=== PATIENT | male | born 1950 | race Caucasian/White ===

== ENCOUNTER → 2018-11-15 | Day surgery (SDC) | payer MEDICARE ==
[2018-11-10 11:57] LABS: BASOPHILS # (AUTO) 0.1 (0.0-0.1); EOSINOPHILS # (AUTO) 0.3 (0.0-0.4); EOSINOPHILS % 5.1 % (0.0-6.0); HEMATOCRIT 37.5 % (38.2-49.6); HEMOGLOBIN 12.5 g/dL (14.0-18.0); LYMPHOCYTES # (AUTO) 1.2 (1.0-3.2); LYMPHOCYTES % 22.6 % (18.0-39.1); MEAN CORPUSCULAR HEMOGLOBIN 28.5 pg (28-32); MEAN CORPUSCULAR HGB CONC 33.3 g/dL (31-35); MEAN CORPUSCULAR VOLUME 85.6 fL (81-99); MONOCYTES # (AUTO) 0.5 (0.2-0.8); MONOCYTES % 9.1 % (4.4-11.3); NEUTROPHILS # (AUTO) 3.3 (2.1-6.9); NEUTROPHILS % 61.8 % (38.7-80.0); PLATELET COUNT 172 x10e3/uL (140-360); RED BLOOD COUNT 4.38 x10e6/uL (4.3-5.7); RED CELL DISTRIBUTION WIDTH 13.6 % (11.7-14.4)
[~2018-11-15] MED LIST: ABILIFY10 MG PO; ACTOS30 MG PO; ARICEPT10 MG PO; ASPIR 8181 MG PO; ASPIRIN 81; ASPIRIN325 MG PO; CARVEDILOL25 MG PO; CLOPIDOGREL75 MG PO; CRESTOR10 MG PO; CYMBALTA60 MG PO; DIOVAN160 MG PO; EPHEDRINE SULFATE INJ 50 MG/10 ML SYR ONE; EXELON1 EAC1 TOP; FENTANYL CITRATE/PF 100MCG/2 ML INJ ONE; FLONASE; GABAPENTIN300 MG PO; GLIMEPIRIDE2 MG PO; GLUCAGON FOR INJ 1 MG VIAL ONE; HUMALOG MI100 UNIT/2 INJ; HYDROCODON-ACE1 EAC9 PO; HYOSCYAMINE 0.125 MG TAB ONE; JANUMET 50-1,01 EACH PO; JANUMET XR 50-1 EAC1; JANUMET XR 50-1 EAC1 PO; LANTUS100 UNITS/ SC; LEVOCETIRIZINE D5 MG PO; LORTAB 10-5001 EACH PO; LOSARTAN POTAS100 MG PO; MEMANTINE PO; MIDAZOLAM HCL 2 MG/2 ML VIAL ONE; NAMENDA PO; NOVOLOG SC; NOVOLOG100 UNITS1 SC; PANTOPRAZOLE SO40 MG PO; PLAVIX75 MG PO; PROPOFOL IV EMULSION 10 MG/ML 50 ML VIAL ONE; RIVASTIGMINE6 MG PO; SOMA350 MG PO; TAMSULOSIN HCL0.4 MG PO; TRESIBA SC; TRILIPIX135 MG PO
--- OUTSIDE RECORDS SUMMARY | 2018-11-15 06:35 | XMS REPORT | Continuity of Care Document ---
Author Author [facility] Organization [facility] Address Unknown Phone Unavailable Care Team Providers Care Gardening Manager Name Role Phone [facility] Unavailable Unavailable Problems Problem Status Onset Date Classification Date Reported Comments Source Epididymitis 01/22/2018 07/28/2018 [facility] Alzheimer's disease with early onset 01/08/2018 07/21/2018 [facility] FOLLOW UP Active 10/09/2014 [facility] 6 MONTH FOLLOW UP Active 10/10/2013 [facility] NEW PATIENT/HOSPITAL FOLLOW UP EXISTINE Active 2013 [facility] F/U Active 10/18/2012 [facility] Coronary artery disease Active Problem 07/28/2018 [facility], [facility] Diabetes mellitus type II Resolved Problem 07/28/2018 [facility], [facility] [place] Hyperlipidemia Active Problem 07/28/2018 [facility], [facility] Hypertension Active Problem 07/28/2018 [facility] [place] Postpolio syndrome Resolved Problem 07/28/2018 [facility], [facility] [place] Spinal stenosis Resolved Problem 07/28/2018 [facility] Radiculopathy, lumbar region 07/21/2018 [facility] Pain in right hip 07/21/2018 [facility] Other intervertebral disc displacement, lumbosacral region 07/21/2018 [facility] Spinal stenosis, lumbar region without neurogenic claudication 07/21/2018 [facility] Spinal stenosis, lumbosacral region 07/21/2018 [facility] Other congenital malformations of spine, not associated with scoliosis 07/21/2018 [facility] Unilateral primary osteoarthritis, right hip 07/21/2018 [facility] ROUTINE MEDICAL EXAM Active [facility] MEDICAL SERVICES NOT AVAILABLE IN HOME Active [facility] Medications Medication Details Route Status Patient Instructions Ordering Provider Order Date Source Rosuvastatin calcium 20 MG Oral Tablet [Crestor] 20 mg=1 tab, PO, Bedtime, # 90 tab, 3 Refill(s), Pharmacy: [facility] [id number] Active 04/10/2014 [facility] Allergies, Adverse Reactions, Alerts No Known Medication Allergies Immunizations Immunization Date Given Site Status Last Updated Comments Source influenza virus vaccine, inactivated 01/27/2013 Left deltoid completed Diomedes [facility], RACHID Castano pneumococcal 23-valent vaccine 01/24/2013 Right deltoid completed Deo [facility], RACHID [facility] Results No Data Provided for This Section Pathology Reports No Data Provided for This Section Diagnostic Reports Report Value Date Source Scrotal/Testicle US EXAM: Scrotal/Testicle US HISTORY: - N50.9 Disorder of male genital organs, unspecified << No Exact Match >> COMPARISON: None Technique: Ledesma scale, color and limited spectral doppler imaging of the testicles. FINDINGS: There is scrotal thickening. The testes are normal in position within the scrotal sac. The right testicle measures 3.8 x 2.0 x 2.2 cm with normal homogenous echogenicity. No mass. The right epididymal head measures 1.1 cm. There is a 1.6 cm epididymal head cyst incidentally noted. The left testicle measures 4.0 x 1.6 x 2.6 cm with normal homogenous echogenicity. No mass. The left epididymal head measures 1.1 cm. There is a 3 mm left epididymal head cyst. No hydrocele is seen. No varicocele is seen. Normal, symmetric dopplerable flow is seen in both testicles. No epididymal hyperemia to suggest infection. IMPRESSION: Normal testicles. Scrotal skin thickening. 01/08/2018 [facility]ACH[facility] Castano Hip wo contrast MRI EXAM: MR RIGHT HIP WITHOUT CONTRAST DATE: 01/01/2018 at 0723 hours. INDICATION: M25.551 Pain in right hip. ADDITIONAL INFORMATION: 67-year-old man with mid to lower back pain which radiates into the right hip times several years. COMPARISON: None available. TECHNIQUE: Multiplanar, multisequence MR noncontrast imaging of the right hip. FINDINGS: LABRUM: While the examination is limited without intra-articular contrast, no acute labral abnormality is identified. There is thickening and heterogeneous signal of the posterior inferior labrum (image 13, series 8). LIGAMENTS: The ligamentum teres and the capsular ligaments are intact. MUSCLES/TENDONS: No signal abnormality in the muscles or tendons. CARTILAGE: No focal defects. BONE: No fractures. Small marginal osteophytes are seen at the head/neck junction of the femur. SOFT TISSUE: Normal. No abnormality of the visible neurovascular structures. IMPRESSION: No acute abnormality. Mild RIGHT hip osteoarthrosis. Degenerative-type abnormality of the posteroinferior labrum. Please see the concurrent lumbar spine MRI for additional details. 01/01/2018 [facility] Spine lumbar wo contrast MRI Spine lumbar wo contrast MRI , 01/01/2018 7:09 AM CDT. CLINICAL INDICATION: 67 years Male M54.16 Radiculopathy, lumbar region - M54.16 Radiculopathy, lumbar region . Comparison: 11/30/2012 TECHNIQUE: Sagittal T1, sagittal T2 with fat saturation, axial T1 and axial T2 images were obtained. FINDINGS: There is congenital narrowing of the canal due to short pedicles, which exaggerates the effects of degenerative change. There is been exchanged to type II (fatty) endplate changes at L4-L5 and L5-S1, previously type I (fibrovascular/edematous). There is straightening of lumbar lordosis with L4-L5 greater than L2-L3 retrolisthesis of up to 4 mm. The vertebrae are otherwise normal in shape, signal intensity and alignment. The paravertebral musculature demonstrates mild fatty atrophy in keeping with deconditioning. The conus medullaris terminates normally at the L1 level. There is no intradural mass lesion. T12-L1: There is preservation of the disc signal intensity, height, with no bulging, herniation, spinal stenosis, or neural foraminal stenosis. L1-L2: Disc is mildly desiccated but normal in height, with no bulging, herniation, spinal stenosis, or neural foraminal stenosis. L2-L3: Disc is desiccated with mild disc height loss. 5 mm disc bulge exaggerated by the retrolisthesis with mild facet hypertrophy. This results in moderate to severe canal lateral recess narrowing with crowding of the nerve roots and near CSF block. Mild to moderate bilateral neural foraminal narrowing with slight deformity of the L2 nerve root. No focal disc herniation. L3-L4: Disc is desiccated with maintained disc height. Disc bulge/disc osteophyte complexes measure up to 4 mm with moderate facet hypertrophy and mild ligamentum flavum thickening. This results in mild canal, neural foraminal, and lateral recess narrowing bilaterally. No focal disc herniation. L4-L5: Disc is desiccated with moderate disc height loss. Diffuse disc osteophyte complexes measure up to 6 mm in the midline and 7 mm in the right greater than left extraforaminal region exaggerated by the retrolisthesis with mild facet hypertrophy and ligamentum flavum thickening. This results in severe left and moderate right neural foraminal narrowing with compression of the left and deformity of the right L4 nerve roots. Moderate to severe canal and lateral recess narrowing with crowding of the nerve roots and near CSF block. L5-S1: Disc is desiccated with maintained disc height. Subligamentous disc extrusion again noted measuring approximately 8 mm anterior posteriorly and extending 8 mm below the level the disc with moderate annular fissuring, superimposed disc bulge asymmetric to the left measuring up to 6 mm, moderate facet hypertrophy and ligamentum flavum thickening. This results in severe left greater than right canal lateral recess narrowing compression of the nerve roots and probable complete CSF block. Severe bilateral neural foraminal compression of the L5 nerve roots. IMPRESSION: 1. Conversion of type I to type II changes at L4-L5 and L5-S1. 2. Otherwise, no significant interval change in multilevel degenerative with L5- S1 disc extrusion with annular fissuring, and severe canal/lateral recess stenosis at L5-S1 greater than L2-L3 and L4-L5, which is combined congenital and acquired. Multilevel foraminal narrowing including compression of left L4 and bilateral L5 nerve roots. Lesser stenoses as above. 3. Multilevel retrolisthesis. If there is clinical concern for instability, consider flexion-extension views. 01/01/2018 [facility] Cast[facility] Brain wo contrast MRI Patient Name: ALICIA ROSE : 1950; Age: 66 years y/o Male MR: [id number] Study: Brain wo contrast MRI 09/03/2016 3:08 PM CDT Ordering Physician: Nathalie Mccall MD Clinical Indication: I63.30 Cerebral infarction due to thrombosis of unspecified cerebral artery; Comparison: 08/22/2013 brain magnetic resonance imaging TECHNIQUE: Multiplanar noncontrast MRI of the brain is performed. FINDINGS: BRAIN PARENCHYMA: There is no hemorrhage, mass lesion, extra axial collection, cerebral edema, or mass effect. Diffusion sequences are normal. There is mild generalized cortical and deep white matter volume loss most evident in the temporal lobes. There are mild periventricular white matter signal abnormalities without mass effect. There are no cortical signal abnormalities. The cerebellar tonsils are above foramen magnum. The pituitary gland is age-appropriate. CEREBELLOPONTINE REGIONS AND SKULL BASE: The cerebellopontine angles appear unremarkable. No skull base abnormality is seen. VENTRICLES/SULCI/CISTERNS: The ventricles are normal in size and configuration. The basal cisterns are patent. VISUALIZED VESSELS: Major intracranial flow voids are preserved. ORBITS, VISUALIZED PARANASAL SINUSES AND MASTOIDS: Paranasal sinuses are clear. The mastoid air cells are clear. No orbital pathology is seen. IMPRESSION: 1. No evidence of acute or recent ischemia. Chronic small vessel ischemic changes are stable compared to previous study 2. Generalized volume loss most evident in the temporal lobes 09/03/2016 RACH[facility] Castano Consultation Notes No Data Provided for This Section Discharge Summaries No Data Provided for This Section History and Physicals No Data Provided for This Section Vital Signs Vital Sign Value Date Comments Source BMI Calculated 29.57 10/09/2014 [facility] Weight 98.892 10/09/2014 [facility] Height 182.88 cm 10/09/2014 [facility] Heart Rate 86 10/09/2014 [facility] Temperature Oral (F) 97.8 F 10/09/2014 [facility] Systolic (mm Hg) 172 10/09/2014 [facility] Diastolic (mm Hg) 91 10/09/2014 [facility] Respitory Rate 16 04/10/2014 [facility] Temperature Oral (F) 97.7 F 04/10/2014 [facility] Heart Rate 82 04/10/2014 [facility] Systolic (mm Hg) 178 04/10/2014 [facility] Diastolic (mm Hg) 98 04/10/2014 [facility] Height 182.88 cm 04/10/2014 [facility] BMI Calculated 27.74 04/10/2014 [facility] Weight 92.784 04/10/2014 [facility] Encounters Location Location Details Encounter Type Encounter Number Reason For Visit Attending Provider ADM Date DC Date Status Source [facility] Outpatient [id number] Bib De Los Santos 04/10/2014 04/11/2014 [facility] Outpatient [id number] Bib De Los Santos 10/09/2014 10/10/2014 [facility] Outpatient [id number] Bib De Los Santos 04/16/2015 04/17/2015 [facility] [id number] Nathalie Palvadi 09/03/2016 09/04/2016 [facility] [place] [id number] Nathalie Palvadi 01/01/2018 01/02/2018 [facility] [place] [id number] Giovanny Guan 01/08/2018 01/09/2018 [facility] Procedures Procedure Code Date Perfomer Comments Source Coronary artery bypass grafts x 2 [id number] 01/27/2013 [facility] Coronary artery bypass grafts x 2 [id number] 01/27/2013 [facility] Laminectomy [id number] 01/13/2013 [facility] Laminectomy [id number] 01/13/2013 [facility] Percutaneous transluminal coronary angioplasty<sup>1</sup> [id number] Multiple times [facility] Percutaneous transluminal coronary angioplasty<sup>1</sup> [id number] Multiple times [facility] Assessment and Plan No Data Provided for This Section Plan of Care No Data Provided for This Section Social History Social History Date Source Social History TypeResponse Substance Abuse 1 Alcohol 2 Smoking Status Former smoker; Stopped at age: 57; Exposure to Tobacco Smoke Unable to obtain; Cigarette Smoking Last 365 Days No; Reg Smoking Cessation Counseling No [id number] 05/17/2013 [facility] Social History TypeResponse Substance Abuse 1 Alcohol 2 Smoking Status Former smoker; Exposure to Tobacco Smoke Unable to obtain; Cigarette Smoking Last 365 Days No; Reg Smoking Cessation Counseling No; Stopped at age: 57; entered on: 10/09/14 [id number] 05/17/2013 [facility] Family History No Data Provided for This Section Advance Directives No Data Provided for This Section Functional Status No Data Provided for This Section
--- OUTSIDE RECORDS SUMMARY | 2018-11-15 06:35 | XMS REPORT | Summary of Care ---
Author Author [facility] [place] Organization [facility] [place] Address Unknown Phone Unavailable Encounter FRAN Durate(FIN) [id number] Date(s): 01/01/18 - 01/01/18 [facility] Outpatient Imaging [facility] [address] [place], [place] [address] [phone] Encounter Diagnosis Alzheimer's disease with early onset (Final) - 01/07/18 Radiculopathy, lumbar region (Final) - Pain in right hip (Final) - Other intervertebral disc displacement, lumbosacral region (Final) - Spinal stenosis, lumbar region without neurogenic claudication (Final) - Spinal stenosis, lumbosacral region (Final) - Other congenital malformations of spine, not associated with scoliosis (Final) - Unilateral primary osteoarthritis, right hip (Final) - Discharge Disposition: Home or Self Care Attending Physician: Nathalie Mccall MD Referring Physician: Nathalie Mccall MD Vital Signs No data available for this section Problem List Condition Effective Dates Status Health Status Informant Coronary artery Active disease(Confirmed) Diabetes mellitus Resolved type II(Confirmed) Hyperlipidemia(Confi Active rmed) Hypertension(Confirm Active ed) Postpolio Resolved syndrome(Confirmed) Spinal Resolved stenosis(Confirmed) Allergies, Adverse Reactions, Alerts Substance Reaction Severity Status NKDA Active Medications No data available for this section Results No data available for this section Immunizations Given and Recorded Vaccine Date Status Refusal Reason influenza virus vaccine, inactivated 01/27/13 Given pneumococcal 23-valent vaccine 01/24/13 Given Procedures Procedure Date Related Diagnosis Body Site Status Coronary artery bypass grafts x 2 01/27/13 Completed Laminectomy 01/13/13 Completed Percutaneous transluminal coronary Completed angioplasty1 1Multiple times Social History Social History Type Response Substance Abuse 1 Alcohol 2 Smoking Status Former smoker; Exposure to Tobacco Smoke Unable to obtain; Cigarette Smoking Last 365 Days No; Reg Smoking Cessation Counseling No; Stopped at age: 57; entered on: 10/09/14 1None 2NOne Assessment and Plan No data available for this section
--- OUTSIDE RECORDS SUMMARY | 2018-11-15 06:35 | XMS REPORT | Summary of Care ---
Author Author [facility] [place] Organization [facility] [place] Address Unknown Phone Unavailable Encounter HQ Gerald(FIN) [id number] Date(s): 01/08/18 - 01/08/18 [facility] [place] [address] [place] [address] [phone] Encounter Diagnosis Epididymitis (Final) - 01/22/18 Discharge Disposition: Home or Self Care Attending Physician: Giovanny Guan MD Referring Physician: Giovanny Guan MD Vital Signs No data available for [...]
--- OUTSIDE RECORDS SUMMARY | 2018-11-15 06:36 | XMS REPORT | Summary of Care ---
Author Author [facility] [place] Organization [facility] [place] Address Unknown Phone Unavailable Encounter [facility] Julianor_deepti(FIN) [id number] Date(s): 09/03/16 - 09/03/16 [facility] [place] [address] [phone] Discharge Disposition: Home or Self Care Attending Physician: Nathalie Mccall MD Vital Signs No [...] Procedures Procedure Date Related Diagnosis Body Site Coronary artery bypass grafts x 2 01/27/13 Laminectomy 01/13/13 Percutaneous transluminal coronary angioplasty1 1Multiple times Social History Social History Type Response Substance Abuse 1 Alcohol 2 Smoking Status Former smoker; Stopped at age: 57; Exposure to Tobacco Smoke Unable to obtain; Cigarette Smoking Last 365 Days No; Reg Smoking Cessation Counseling No 1None 2NOne Assessment and Plan No data available for this section
--- OUTSIDE RECORDS SUMMARY | 2018-11-15 06:36 | XMS REPORT | Summary of Care ---
Author Organization Unknown Address Unknown Phone Unavailable Encounter FRAN Duarte(ISIDRO) [id number] Date(s): 04/10/14 - 04/10/[address] Discharge Disposition: Home Physician Attending: Bib De Los Santos MD Physician_Referring: Bib De Los Santos MD Reason for Visit 6 MONTH FOLLOW UP Vital Signs Most recent to 1 oldest [Reference Range]: Height 182.88 cm (04/10/14 1:39 PM) Temperature Oral 97.7 DegF [96.4-99.1 DegF] (04/10/14 1:39 PM) Systolic Blood 178 mmHg Pressure [90-140 *HI* mmHg] (04/10/14 1:39 PM) Diastolic Blood 98 mmHg Pressure [60-90 *HI* mmHg] (04/10/14 1:39 PM) Respiratory Rate 16 BRMIN [14-20 BRMIN] (04/10/14 1:39 PM) Peripheral Pulse 82 bpm Rate [60-100 bpm] (04/10/14 1:39 PM) Weight 92.784 kg (04/10/14 1:39 PM) Body Mass Index 27.74 m2 (04/10/14 1:39 PM) Problem List Condition Effective Dates Status Health Status Informant Coronary artery Active disease(Confirmed) Diabetes mellitus Resolved type II(Confirmed) Hyperlipidemia(Confi Active rmed) Hypertension(Confirm Active ed) Postpolio Resolved syndrome(Confirmed) Spinal Resolved stenosis(Confirmed) Allergies, Adverse Reactions, Alerts Substance Reaction Severity Status NKDA Active Medications Crestor 20 mg oral tablet 20 mg=1 tab, PO, Bedtime, # 90 tab, 3 Refill(s), Pharmacy: [facility] [id number] Start Date: 04/10/14 Status: Ordered Medications Administered During Your Visit No data available for this section Immunizations Vaccine Date Refusal Reason influenza virus vaccine, inactivated 01/27/13 pneumococcal 23-valent vaccine 01/24/13 Social History Social History Type Response Substance Abuse 1 Alcohol 2 Smoking Status Former smoker, Exposure to Tobacco Smoke Unable to obtain, Cigarette Smoking Last 365 Days No, Reg Smoking Cessation Counseling No 1None 2NOne
--- OUTSIDE RECORDS SUMMARY | 2018-11-15 06:36 | XMS REPORT | Summary of Care ---
Author Author [facility] Organization [facility] Address Unknown Phone Unavailable Encounter HQ Gerald(ISIDRO) [id number] Date(s): 04/16/15 - 04/16/15 [facility] [address] [facility] [facility], [address] Discharge Disposition: Home Attending Physician: Bib De Los Santos MD Referring Physician: Bib De Los Santos MD Vital Signs No data available for [...] vaccine, inactivated 01/27/13 pneumococcal 23-valent vaccine 01/24/13 Procedures Procedure Date Related Diagnosis Body Site [...]
--- OUTSIDE RECORDS SUMMARY | 2018-11-15 06:36 | XMS REPORT | Summary of Care ---
Author Author SELIN KERN M.D. Unknown Address Unknown Phone Unavailable Care Team Providers Care Doll Surgeon Name Role Phone SELIN KERN M.D. Unavailable Unavailable AUBREY THOMSON DO Unavailable Unavailable SELIN PARSON MD Unavailable Unavailable Unavailable Unavailable Functional Status Name Dates Details Functional status health issues are not documented Status: Name Dates Details Cognitive status health issues are not documented Status: Problems Name Dates Details Hypercalcemia (275.42, E83.52) Status: Active Coronary artery disease (414.00, I25.10) Status: Active Depressive disorder (311, F32.9) Status: Active Diabetes mellitus with peripheral circulatory disorder (250.70, E11.51) Status: Active Thyroid cyst (246.2, E04.1) Status: Active Diabetes mellitus (250.00, E11.9) Status: Active Fatigue (780.79, R53.83) Status: Active Flu vaccine need (V04.81, Z23) Status: Active Hypoglycemia (251.2, E16.2) Status: Active Limb pain (729.5, M79.609) Status: Active Type 2 diabetes mellitus with other circulatory complication, 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 * Refills: 0 CONCHA M.D., SELIN * Start : 24-Jul-2012 Active Gabapentin 300 MG Oral Capsule TAKE 1 CAPSULE TWICE DAILY. Per Neurologist * Refills: 0 CONCHA M.D., SELIN Active Cymbalta 60 MG Oral Capsule Delayed Release Particles * Refills: 0 CONCHA M.D., SELIN Active Aspirin 81 MG TABS TAKE 1 TABLET DAILY. * Refills: 0 Active Janumet XR 50-1000 MG Oral Tablet Extended Release 24 Hour 1 tab twice a day * Quantity: 180 Refills: 1 SELIN KERN M.D. * Start : 10-Nov-2016 Active Accu-Chek Guide In Vitro Strip TEST BLOOD SUGAR DIRECTED THREE TIMES DAILY * Quantity: 3 Refills: 4 CONCHASELIN Nevarez M.D. * Start : 10-Nov-2016 Active 100 Strip Box Accu-Chek FastClix Lancets Check BG 3x a day * Quantity: 300 Refills: 4 SELIN KERN M.D. * Start : 10-Nov-2016 Active Namenda XR 28 MG Oral Capsule Extended Release 24 Hour * Refills: 0 SELIN KERN M.D. * Start : 12-Nov-2016 Active ARIPiprazole 10 MG Oral Tablet * Refills: 0 SELIN KERN M.D. * Start : 12-Nov-2016 Active GlucaGen HypoKit 1 MG Injection Solution Reconstituted USE DIRECTED in case of severe hypoglycemia * Quantity: 1 Refills: 10 SELIN KERN M.D. * Start : 12-Nov-2016 Active Pantoprazole Sodium 40 MG Oral Tablet Delayed Release * Refills: 0 SELIN KERN M.D. * Start : 20-Feb-2017 Active Clopidogrel Bisulfate 75 MG Oral Tablet * Refills: 0 SELIN KERN M.D. * Start : 20-Feb-2017 Active 30 Tablet Bottle Rivastigmine Tartrate 3 MG Oral Capsule * Refills: 0 SELIN KERN M.D. * Start : 20-Feb-2017 Active Pen Hancock 32G X 4 MM 4 a day * Quantity: 400 Refills: 4 CONCHASELIN Nevarez M.D. * Start : 20-Feb-2017 Active NovoLOG FlexPen 100 UNIT/ML Subcutaneous Solution Pen-injector 14 units before each meal; Replacing Humalog Mix 75/25 MDD:50 * Quantity: 1 Refills: 3 CONCHA M.SELIN Ralph * Start : 05-Jun-2017 Active 5 x 3 ML Pen Tresiba FlexTouch 100 UNIT/ML Subcutaneous Solution Pen-injector INJECT 38 UNITS SUBCUTANEOUSLY EVERY DAY- MAY TAKE ADDITIONAL 5 UNITS ON THE NIG HT OF STEROID SHOT. UP TO 45 UNITS PER DAY * Quantity: 1 Refills: 3 CONCHA M.D., SELIN * Start : 05-Jun-2017 Active 5 x 3 ML Pen Pen Hancock 32G X 4 MM 4 a day * Quantity: 400 Refills: 6 SELIN KERN M.D. * Start : 05-Jun-2017 Active Losartan Potassium 100 MG Oral Tablet Per core dropper * Refills: 0 SELIN KERN M.D. 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 History of stroke (V12.54, Z86.73) Status: Resolved Procedures Procedure Dates Details History of PTCA Completed History of Coronary artery bypass graft Completed History of Cataract surgery Completed History of Laminectomy Completed History of Hernia repair Completed Immunization Name Dates Details Fluzone High-Dose 0.5 ML Intramuscular Suspension Prefilled Syringe Lot #: [id number] on: 20-Feb-2017 Fluzone High-Dose 0.5 ML Intramuscular Suspension Prefilled Syringe on: 08-Feb-2018 Family History Name Dates Details Family history of Coronary Artery Disease (V17.49) Comments: Family History Status: Active Family history of Diabetes Mellitus (V18.0) Comments: Family History Status: Active Name Dates Details Family history of Diabetes Mellitus (V18.0) Status: Active Social History Name Dates Details - Status: Name Dates Details Former smoker Vital Signs Date Test Result Details :29 BP Systolic 120 mm[Hg] Status: BP Diastolic 70 mm[Hg] Status: :07 BP Systolic 101 mm[Hg] Status: Comments: Location: E; Position: Sitting BP Diastolic 65 mm[Hg] Status: Comments: Location: E; Position: Sitting Height 72 in Status: Weight 214.2 lb Status: Body Mass Index Calculated 29.05 kg/m2 Status: Body Surface Area Calculated 2.19 m2 Status: Heart Rate 72 /min Status: Results Date Description Value Details :08 [O] Hemoglobin A1c (in office) HEMOGLOBIN A1c 6.8 :08 [O] Lipid Panel (In Office) CHOLESTEROL, TOTAL 113 HDL CHOLESTEROL 39 TRIGLYCERIDES 96 LDL-CHOLESTEROL 55 NON HDL CHOLESTEROL 74 T. Chol/HDL Ratio 2.9 GLUCOSE 188 [id number] Glucose (Point of Care In Office) Glucose POC Lifescan 196 Plan of Care Name Dates Details Planned Observations Planned Goals not documented Planned Encounters Appointment; SELIN KERN M.D. On: 06-Dec-2018 9:30 Instructions Name Dates Details Instructions not documented Encounters Appointment; SELIN KERN M.D. Encounter Diagnosis: Problem not documented On: 12-Nov-2016 13:30 Appointment; SELIN KERN M.D. Encounter Diagnosis: Problem not documented On: 20-Feb-2017 13:00 Appointment; SELIN KERN M.D. Encounter Diagnosis: Problem not documented On: 05-Jun-2017 9:30 Appointment; [address] Encounter Diagnosis: Problem not documented On: 19-Jun-2017 9:00 Appointment; SELIN KERN M.D. Encounter Diagnosis: Problem not documented On: 03-Aug-2017 12:00 Appointment; SELIN KERN M.D. Encounter Diagnosis: Problem not documented On: 27-Aug-2017 15:15 Appointment; SELIN KERN M.D. Encounter Diagnosis: Problem not documented On: 02-Nov-2017 11:00 Appointment; BJ QUINTERO M.D. Encounter Diagnosis: Problem not documented On: 27-Jan-2018 11:00 Appointment; SELIN KERN M.D. Encounter Diagnosis: Problem not documented On: 17-Feb-2018 9:30 Appointment; SELIN KERN M.D. Encounter Diagnosis: Problem not documented On: 05-May-2018 11:00
--- OUTSIDE RECORDS SUMMARY | 2018-11-15 06:36 | XMS REPORT | Summary of Care ---
Author Organization Unknown Address Unknown Phone Unavailable Encounter HQ Gerald(ISIDRO) [id number] Date(s): 10/09/14 - 10/09/14 [facility] [address], [address] [place], [place] [id number] [place] [address] Discharge Disposition: Home Physician Attending: Bib De Los Santos MD Physician_Referring: Bib De Los Santos MD Vital Signs Most recent to 1 oldest [Reference Range]: Height 182.88 cm (10/09/14 2:05 PM) Temperature Oral 97.8 DegF [96.4-99.1 DegF] (10/09/14 2:05 PM) Blood Pressure 172/91 mmHg [90-140/60-90 mmHg] *HI* (10/09/14 2:05 PM) Peripheral Pulse 86 bpm Rate [60-100 bpm] (10/09/14 2:05 PM) Weight 98.892 kg (10/09/14 2:05 PM) Body Mass Index 29.57 m2 (10/09/14 2:05 PM) Problem List Condition Effective Dates Status [...]
[2018-11-15 11:00] VITALS: BP 132/92
--- NOTE | 2018-11-15 11:10 | Operative Report ---
DATE OF PROCEDURE: 11/15/2018 SURGEON: Ahsan Waldron MD PROCEDURE: 1. Esophagogastroduodenoscopy with biopsies. 2. Colonoscopy with polypectomy. INDICATIONS FOR EGD: History of acid reflux, Zayas's esophagus. INDICATIONS FOR COLONOSCOPY: Surveillance colonoscopy, personal history of colon polyps. MEDICATION: The patient was done under MAC, please see anesthesiologist's note. PROCEDURE IN DETAIL: With the patient in the left lateral decubitus position, a flexible fiberoptic Olympus gastroscope was introduced into the esophagus under direct visualization without any difficulty. There was some minute tongues of velvety red mucosa noted to extend proximally from the GE junction and biopsies were obtained. The previously described Zayas esophagus appears to have been partially re-epithelialized. The scope was then advanced with ease into the stomach and traversing a small sliding hiatal hernia. The mucosa overlying the antrum appeared somewhat atrophic and biopsies were obtained to rule out atrophic gastritis. Biopsies were also obtained from the body of the stomach. Pylorus was of normal contour and shape, it was intubated with ease and the scope was advanced all the way to the second portion of the duodenum. The scope was then withdrawn slowly. Mucosa overlying the proximal second portion and duodenal bulb appeared to be within normal limits. The scope was then withdrawn back into the stomach and retroflexed. Mucosa overlying the fundus and the cardia appeared to be within normal limits. The scope was then straightened out, it was subsequently withdrawn. The patient tolerated the procedure well. IMPRESSION: 1. Zayas esophagus, partially re-epithelialized, biopsies obtained. 2. Small sliding hiatal hernia. 3. Rule out atrophic gastritis. PLAN: Follow up histology. Continue Protonix 40 mg one p.o. q.a.m. a.c. The patient was then turned around. After adequate lubrication of the anal canal, a flexible fiberoptic Olympus colonoscope was inserted into the rectum with ease and advanced all the way to the cecum. It was then withdrawn slowly. Mucosa overlying the cecum and ascending colon appeared to be within normal limits. One polyp was snared from the distal transverse colon. Diverticular disease was noted to involve the distal descending and the sigmoid colon. One polyp was hot biopsied from the rectum. The scope was then retroflexed into the distal rectum and small internal hemorrhoids were noted, none of which was actively bleeding. The scope was then straightened out, it was subsequently withdrawn. The patient tolerated the procedure well. IMPRESSION: 1. Transverse colon polyp, snared. 2. Diverticulosis. 3. Rectal polyp, hot biopsied. 4. Internal hemorrhoids, none actively bleeding. PLAN: Followup pathology. Initiate high-fiber, low-fat diet. Initiate high-fiber supplement. The patient might benefit from a followup colonoscopy in 5 years. Ahsan Waldron MD [facility] [place] /[id number] cc: Vern Garcia DO
== END | disposition home or self-care (01) ==
LOC: OR 06:27
PROVIDERS: ATTEND Internal Medicine Gastroenterology
DX: K22.70 Barrett's esophagus without dysplasia (principal); D12.3 Benign neoplasm of transverse colon; D12.8 Benign neoplasm of rectum; K29.60 Other gastritis without bleeding; K21.0 Gastro-esophageal reflux disease with esophagitis; K44.9 Diaphragmatic hernia without obstruction or gangrene; K57.30 Diverticulosis of large intestine without perforation or abscess without bleeding; K64.8 Other hemorrhoids; G62.9 Polyneuropathy, unspecified; G47.33 Obstructive sleep apnea (adult) (pediatric); I10 Essential (primary) hypertension; I25.2 Old myocardial infarction; E11.9 Type 2 diabetes mellitus without complications; M48.00 Spinal stenosis, site unspecified; E78.00 Pure hypercholesterolemia, unspecified; Z01.810 Encounter for preprocedural cardiovascular examination; F32.9 Major depressive disorder, single episode, unspecified; Z01.812 Encounter for preprocedural laboratory examination; Z79.02 Long term (current) use of antithrombotics/antiplatelets; Z79.4 Long term (current) use of insulin; Z79.82 Long term (current) use of aspirin; Z86.12 Personal history of poliomyelitis; Z95.1 Presence of aortocoronary bypass graft
CPT/HCPCS: 36415 ×2; 43239; 45384; 45385; 82948; 85025; 88305; 88312; 93005; J1610; J2250; J2704; 45378; J3010

== ENCOUNTER 2020-07-03 09:50 | Inpatient (IN) | payer MEDICARE, OTHER ==
[~2020-07-03] VITALS: Ht 182.9 cm; Wt 80.7 kg
[~2020-07-03 09:50] MED LIST changes: -EPHEDRINE SULFATE INJ 50 MG/10 ML SYR ONE; -FENTANYL CITRATE/PF 100MCG/2 ML INJ ONE; -GLUCAGON FOR INJ 1 MG VIAL ONE; -HYOSCYAMINE 0.125 MG TAB ONE; -MIDAZOLAM HCL 2 MG/2 ML VIAL ONE; -PROPOFOL IV EMULSION 10 MG/ML 50 ML VIAL ONE
[2020-07-03] MEDS ORDERED: PIPERACILLIN/TAZO 4.5 GM 100 ML IV STA (10:18)
[2020-07-03 10:55] LABS: BASOPHILS # (AUTO) 0.1 (0.0-0.1); BASOPHILS % 0.7 % (0.0-1.0); EOSINOPHILS # (AUTO) 0.2 (0.0-0.4); EOSINOPHILS % 2.3 % (0.0-6.0); HEMATOCRIT 37.4 % (38.2-49.6); HEMOGLOBIN 12.4 g/dL (14.0-18.0); LYMPHOCYTES # (AUTO) 1.3 (1.0-3.2); LYMPHOCYTES % 17.1 % (18.0-39.1); MEAN CORPUSCULAR HEMOGLOBIN 28.8 pg (28-32); MEAN CORPUSCULAR HGB CONC 33.2 g/dL (31-35); MONOCYTES # (AUTO) 0.6 (0.2-0.8); MONOCYTES % 8.6 % (4.4-11.3); NEUTROPHILS # (AUTO) 5.2 (2.1-6.9); NEUTROPHILS % 70.9 % (38.7-80.0); PLATELET COUNT 190 x10e3/uL (140-360); RED CELL DISTRIBUTION WIDTH 13.3 % (11.7-14.4)
[2020-07-03 11:13] LABS: ALANINE AMINOTRANSFERASE 11 IU/L (0-55); ALBUMIN/GLOBULIN RATIO 1.2 (0.8-2.0); ALKALINE PHOSPHATASE 70 IU/L (40-150); ANION GAP 14.6 mmol/L (8-16); BLOOD UREA NITROGEN 20 mg/dL (7-26); BUN/CREATININE RATIO 19 (6-25); CALCIUM 9.4 mg/dL (8.4-10.2); CARBON DIOXIDE 27 mmol/L (22-29); CHLORIDE 95 mmol/L (98-107); CREATININE, SERUM 1.08 mg/dL (0.72-1.25); EST GLOMERULAR FILTRATION RATE > 60 ML/MIN (60-); GLUCOSE 214 mg/dL (74-118); POTASSIUM 4.6 mmol/L (3.5-5.1); SODIUM 132 mmol/L (136-145)
[2020-07-03] MEDS: SODIUM CHLORIDE 0.9% 1000ML 1,000 ML IV SCH ×2 (12:51→20:00)
[2020-07-03 15:00] VITALS: BP 123/73
[2020-07-03] MEDS ORDERED: MIDAZOLAM HCL 2 MG/2 ML VIAL ONE (15:40)
[2020-07-03] MEDS ORDERED: FENTANYL CITRATE/PF 100MCG/2 ML INJ ONE (15:40)
[2020-07-03] MEDS ORDERED: LIDOCAINE HCL 2% LOCAL 20 ML VIAL ONE (15:40)
[2020-07-03] MEDS ORDERED: IOPAMIDOL 300MG/ML 100 ML INFUS..BTL IV ONE (15:41)
[2020-07-03] MEDS ORDERED: SODIUM CHLORIDE 0.9% 1000ML 1,000 ML ONE (15:41)
[2020-07-03] MEDS ORDERED: HEPARIN SOD/SOD CHLORIDE 2,000 ML ONE (15:41)
[2020-07-03] MEDS ORDERED: AMLODIPINE BESY10 MG PO (16:17)
[2020-07-03] MEDS ORDERED: DEXTROSE 50% SYRINGE 50 ML IV PRN (17:45)
[2020-07-03] MEDS: PIPERACILLIN/TAZOBAC 3.375 GM in SODIUM CHLORIDE 0.9% 50ML 50 ML IV SCH ×2 (18:50→23:43)
[2020-07-03 19:56] VITALS: BP 142/77
[2020-07-03 20:00] VITALS: BP 142/77
[2020-07-03] MEDS: INSULIN LISPRO 100 UNIT/1 ML 3ML VIAL SQ SCH (21:00)
[2020-07-04] VITALS (8 sets, daily range): BP systolic 120–142; BP diastolic 69–97
[2020-07-04] MEDS: SODIUM CHLORIDE 0.9% 1000ML 1,000 ML IV SCH ×2 (04:35→11:52)
[2020-07-04] MEDS: PIPERACILLIN/TAZOBAC 3.375 GM in SODIUM CHLORIDE 0.9% 50ML 50 ML IV SCH ×4 (05:17→23:10)
[2020-07-04 05:19] LABS: BASOPHILS # (AUTO) 0.1 (0.0-0.1); BASOPHILS % 1.1 % (0.0-1.0); EOSINOPHILS # (AUTO) 0.2 (0.0-0.4); EOSINOPHILS % 3.7 % (0.0-6.0); HEMATOCRIT 35.4 % (38.2-49.6); HEMOGLOBIN 12.1 g/dL (14.0-18.0); LYMPHOCYTES # (AUTO) 1.4 (1.0-3.2); LYMPHOCYTES % 22.1 % (18.0-39.1); MEAN CORPUSCULAR HEMOGLOBIN 29.4 pg (28-32); MEAN CORPUSCULAR HGB CONC 34.2 g/dL (31-35); MEAN CORPUSCULAR VOLUME 86.1 fL (81-99); MONOCYTES # (AUTO) 0.7 (0.2-0.8); MONOCYTES % 11.5 % (4.4-11.3); NEUTROPHILS # (AUTO) 3.8 (2.1-6.9); NEUTROPHILS % 61.1 % (38.7-80.0); PLATELET COUNT 168 x10e3/uL (140-360); RED BLOOD COUNT 4.11 x10e6/uL (4.3-5.7); RED CELL DISTRIBUTION WIDTH 13.2 % (11.7-14.4)
[2020-07-04 05:56] LABS: ANION GAP 13.2 mmol/L (8-16); BLOOD UREA NITROGEN 18 mg/dL (7-26); BUN/CREATININE RATIO 18 (6-25); CARBON DIOXIDE 24 mmol/L (22-29); CHLORIDE 100 mmol/L (98-107); CREATININE, SERUM 1.02 mg/dL (0.72-1.25); EST GLOMERULAR FILTRATION RATE > 60 ML/MIN (60-); GLUCOSE 116 mg/dL (74-118); POTASSIUM 4.2 mmol/L (3.5-5.1); SODIUM 133 mmol/L (136-145)
[2020-07-04] MEDS ORDERED: GADOBENATE DIMEGLUMINE 0 ML IV ONE (07:32)
[2020-07-04] MEDS ORDERED: MAGNESIUM SULFATE 2GM/50ML 50 ML IV ONE (08:15)
[2020-07-04] MEDS: CARVEDILOL 12.5 MG TAB PO SCH ×2 (09:42→17:02)
[2020-07-04] MEDS: DULOXETINE HCL 30 MG DELAYED RELEASE PO SCH ×2 (09:43→17:02)
[2020-07-04] MEDS: CLOPIDOGREL BISULFATE 75 MG TAB PO SCH (09:43)
[2020-07-04] MEDS: LOSARTAN POTASSIUM 100 MG TAB PO SCH (09:43)
[2020-07-04] MEDS: PANTOPRAZOLE SOD 40 MG TABEC PO SCH (09:44)
[2020-07-04] MEDS: INSULIN LISPRO 100 UNIT/1 ML 3ML VIAL SQ SCH ×4 (10:11→21:05)
[2020-07-04] MEDS ORDERED: LORAZEPAM 1 MG TAB PO ONE (11:15)
[2020-07-04] MEDS ORDERED: SODIUM CHLORIDE 0.9% 100 ML ONE (11:25)
[2020-07-04] MEDS ORDERED: IOPAMIDOL 370 MG/ML 200 ML INFUS..BTL INJ ONE (11:25)
[2020-07-04] MEDS: CRESTOR 10MG PO SCH (20:31)
[2020-07-04] MEDS: AMLODIPINE BESYLATE 10 MG TAB PO SCH (20:31)
[2020-07-05] VITALS (11 sets, daily range): BP systolic 111–153; BP diastolic 71–95
[2020-07-05] MEDS ORDERED: ARIPIPRAZOLE 20 MG TAB PO SCH (02:30)
[2020-07-05] MEDS: SODIUM CHLORIDE 0.9% 1000ML 1,000 ML IV SCH ×4 (05:25→18:54)
[2020-07-05] MEDS: PIPERACILLIN/TAZOBAC 3.375 GM in SODIUM CHLORIDE 0.9% 50ML 50 ML IV SCH ×3 (05:25→18:44)
[2020-07-05] MEDS ORDERED: MEMANTINE 10 MG TAB PO SCH (09:00)
[2020-07-05] MEDS: ASPIRIN 81 MG ENTERIC COATED PO SCH (09:33)
[2020-07-05] MEDS: CARVEDILOL 12.5 MG TAB PO SCH ×2 (09:35→16:46)
[2020-07-05] MEDS: PANTOPRAZOLE SOD 40 MG TABEC PO SCH (09:36)
[2020-07-05] MEDS: LOSARTAN POTASSIUM 100 MG TAB PO SCH (09:36)
[2020-07-05] MEDS: DULOXETINE HCL 30 MG DELAYED RELEASE PO SCH ×2 (09:36→16:46)
[2020-07-05] MEDS: CLOPIDOGREL BISULFATE 75 MG TAB PO SCH (09:36)
[2020-07-05] MEDS: INSULIN LISPRO 100 UNIT/1 ML 3ML VIAL SQ SCH ×4 (09:38→21:00)
[2020-07-05 12:25] LABS: BASOPHILS # (AUTO) 0.1 (0.0-0.1); BASOPHILS % 1.1 % (0.0-1.0); EOSINOPHILS # (AUTO) 0.2 (0.0-0.4); EOSINOPHILS % 3.3 % (0.0-6.0); HEMOGLOBIN 11.2 g/dL (14.0-18.0); LYMPHOCYTES % 19.3 % (18.0-39.1); MEAN CORPUSCULAR HGB CONC 33.9 g/dL (31-35); MEAN CORPUSCULAR VOLUME 85.5 fL (81-99); MONOCYTES # (AUTO) 0.6 (0.2-0.8); MONOCYTES % 10.9 % (4.4-11.3); NEUTROPHILS # (AUTO) 3.5 (2.1-6.9); NEUTROPHILS % 65.2 % (38.7-80.0); PLATELET COUNT 150 x10e3/uL (140-360); RED BLOOD COUNT 3.86 x10e6/uL (4.3-5.7); RED CELL DISTRIBUTION WIDTH 13.2 % (11.7-14.4)
[2020-07-05 12:46] LABS: ANION GAP 12.1 mmol/L (8-16); BLOOD UREA NITROGEN 12 mg/dL (7-26); BUN/CREATININE RATIO 14 (6-25); CALCIUM 8.6 mg/dL (8.4-10.2); CARBON DIOXIDE 22 mmol/L (22-29); CHLORIDE 101 mmol/L (98-107); CREATININE, SERUM 0.87 mg/dL (0.72-1.25); EST GLOMERULAR FILTRATION RATE > 60 ML/MIN (60-); GLUCOSE 147 mg/dL (74-118); POTASSIUM 4.1 mmol/L (3.5-5.1); SODIUM 131 mmol/L (136-145)
[2020-07-05] MEDS: CRESTOR 10MG PO SCH (21:03)
[2020-07-05] MEDS: AMLODIPINE BESYLATE 10 MG TAB PO SCH (21:03)
[2020-07-06 03:17] VITALS: BP 137/89
[2020-07-06] MEDS: SODIUM CHLORIDE 0.9% 1000ML 1,000 ML IV SCH ×2 (04:21→12:50)
[2020-07-06 05:47] LABS: BASOPHILS # (AUTO) 0.1 (0.0-0.1); BASOPHILS % 1.2 % (0.0-1.0); EOSINOPHILS # (AUTO) 0.3 (0.0-0.4); EOSINOPHILS % 4.4 % (0.0-6.0); HEMATOCRIT 32.8 % (38.2-49.6); HEMOGLOBIN 11.1 g/dL (14.0-18.0); LYMPHOCYTES # (AUTO) 1.6 (1.0-3.2); LYMPHOCYTES % 28.4 % (18.0-39.1); MEAN CORPUSCULAR HEMOGLOBIN 29.5 pg (28-32); MEAN CORPUSCULAR HGB CONC 33.8 g/dL (31-35); MEAN CORPUSCULAR VOLUME 87.2 fL (81-99); MONOCYTES # (AUTO) 0.7 (0.2-0.8); NEUTROPHILS % 53.6 % (38.7-80.0); PLATELET COUNT 149 x10e3/uL (140-360); RED BLOOD COUNT 3.76 x10e6/uL (4.3-5.7); RED CELL DISTRIBUTION WIDTH 13.1 % (11.7-14.4)
[2020-07-06] MEDS: PIPERACILLIN/TAZOBAC 3.375 GM in SODIUM CHLORIDE 0.9% 50ML 50 ML IV SCH ×4 (06:05→13:12)
[2020-07-06 06:12] LABS: CALCIUM IONIZED 1.2 mmol/L (1.09-1.30)
[2020-07-06 07:08] VITALS: BP 158/84
[2020-07-06 07:17] LABS: MAGNESIUM 1.4 MG/DL (1.3-2.1)
[2020-07-06 07:48] LABS: ANION GAP 14.8 mmol/L (8-16); BLOOD UREA NITROGEN 10 mg/dL (7-26); BUN/CREATININE RATIO 13 (6-25); CALCIUM 8.7 mg/dL (8.4-10.2); CARBON DIOXIDE 21 mmol/L (22-29); CHLORIDE 103 mmol/L (98-107); EST GLOMERULAR FILTRATION RATE > 60 ML/MIN (60-); GLUCOSE 148 mg/dL (74-118); POTASSIUM 3.8 mmol/L (3.5-5.1); SODIUM 135 mmol/L (136-145)
[2020-07-06 08:02] VITALS: BP 158/84
[2020-07-06] MEDS ORDERED: MEMANTINE 10 MG TAB PO SCH (09:00)
[2020-07-06] MEDS ORDERED: ARIPIPRAZOLE 20 MG TAB PO SCH (09:00)
[2020-07-06] MEDS: ASPIRIN 81 MG ENTERIC COATED PO SCH (09:07)
[2020-07-06] MEDS: CLOPIDOGREL BISULFATE 75 MG TAB PO SCH (09:08)
[2020-07-06] MEDS: PANTOPRAZOLE SOD 40 MG TABEC PO SCH (09:08)
[2020-07-06] MEDS: CARVEDILOL 12.5 MG TAB PO SCH (09:08)
[2020-07-06] MEDS: DULOXETINE HCL 30 MG DELAYED RELEASE PO SCH (09:08)
[2020-07-06] MEDS: LOSARTAN POTASSIUM 100 MG TAB PO SCH (09:08)
[2020-07-06] MEDS: INSULIN LISPRO 100 UNIT/1 ML 3ML VIAL SQ SCH ×2 (09:09→13:15)
[2020-07-06 11:21] VITALS: BP 121/83
[2020-07-06] MEDS ORDERED: CRESTOR10 MG PO (14:53)
[2020-07-06] MEDS ORDERED: ASPIRIN EC81 MG PO (14:53)
[2020-07-06 17:10] LABS: OSMOLALITY,SERUM OSMOMETER 278 mOsmol/kg (280-301)
== END 2020-07-06 16:18 | disposition home or self-care (01) | DRG 300 ==
LOC: ER 10:18 → ERHOLD 11:13 → MED/SURG2 13:25
PROVIDERS: ADMIT Internal Medicine; ATTEND Internal Medicine
PROC: B41FZZZ Fluoroscopy of Right Lower Extremity Arteries (ICD-10-PCS; principal; 2020-07-03)
DX: E11.52 Type 2 diabetes mellitus with diabetic peripheral angiopathy with gangrene (principal); T82.856A Stenosis of peripheral vascular stent, initial encounter; E87.1 Hypo-osmolality and hyponatremia; E11.621 Type 2 diabetes mellitus with foot ulcer; Y82.8 Other medical devices associated with adverse incidents; I25.10 Atherosclerotic heart disease of native coronary artery without angina pectoris; Z79.899 Other long term (current) drug therapy; Z95.1 Presence of aortocoronary bypass graft; G30.9 Alzheimer's disease, unspecified; F02.80 Dementia in other diseases classified elsewhere, unspecified severity, without behavioral disturbance, psychotic disturbance, mood disturbance, and anxiety; Z20.822 Contact with and (suspected) exposure to COVID-19
CPT/HCPCS: 36247; 36415; 73706; 75625; 75716; 80048; 80053; 82948; 83605; 83735; 83930; 83935; 84300; 85025; 85651; 86140; 87040; 97139; 99152; 99153; 99251; 99284; C1769; J2001; J2250; J2543; J3010; J3475; J7030; J7050; Q9967; U0002

== ENCOUNTER 2020-07-04 11:24 | Outpatient (RCR) | payer MEDICARE ==
[~2020-07-04 11:24] MED LIST changes: +AMLODIPINE BESY10 MG PO
[2020-07-06] MEDS ORDERED: CRESTOR10 MG PO (14:53)
[2020-07-06] MEDS ORDERED: ASPIRIN EC81 MG PO (14:53)
== END 2020-07-08 ==
LOC: WCC 11:24
PROVIDERS: ATTEND Podiatrist Foot & Ankle Surgery
DX: E11.621 Type 2 diabetes mellitus with foot ulcer (principal); L97.529 Non-pressure chronic ulcer of other part of left foot with unspecified severity